=== PATIENT | male | born 1955 | race Caucasian/White ===

== ENCOUNTER 2021-04-18 11:16 | Emergency (ER) | payer OTHER ==
[~2021-04-18] VITALS: Ht 172.7 cm; Wt 88.5 kg
[2021-04-18] MEDS ORDERED: LIPITOR40 MG PO (12:01)
[2021-04-18] MEDS ORDERED: ASPIRIN81 MG PO (12:02)
[2021-04-18] MEDS ORDERED: HYDROCODON-ACE1 EA10 PO (13:27)
== END 2021-04-18 14:00 | disposition home or self-care (01) ==
LOC: ED 11:16
DX: S20.212A Contusion of left front wall of thorax, initial encounter (principal); V86.99XA Unspecified occupant of other special all-terrain or other off-road motor vehicle injured in nontraffic accident, initial encounter
CPT/HCPCS: 71046; 99284-25